=== PATIENT | male | born 1955 | race Caucasian/White ===

== ENCOUNTER → 2023-12-05 | Outpatient (CLI) | payer MEDICARE ==
[~2023-12-05] MED LIST: CIPR500T4 PO; COLA100C2 OR; FLAG500T PO; GAS-80CH OR; INVANZ IV; LEVO100T OR; LEVO125T OR; LIPI10TA OR; LOPR50TA OR; MULTIVIT PO; OMEP20TA7 OR; ONDA-1 OR; PROT1TAB2 OR; SUCR1TAB56 OR; VIT D2 PO; invanz IV
== END ==
LOC: M RAD 12:10
PROVIDERS: ATTEND Physician Assistant Medical
DX: N18.9 Chronic kidney disease, unspecified (principal)